=== PATIENT | female | born 1990 | race African-American/Black ===

== ENCOUNTER 2017-03-20 20:41 | Emergency (ER) | payer OTHER ==
--- NOTE | ~2017-03-20 | EKG ---
PATIENT: DARRYL DRISCOLL UNIT #: [id number] Ventricular Rate: 87 BPM Atrial Rate: 87 BPM P-R Interval: 138 ms QRS Duration: 76 ms Q-T Interval: 366 ms QTC Calculation(Bezet): 440 ms P [place]: 80 degrees Calculated R [place]: 79 degrees Calculated T [place]: 63 degrees Diagnosis Line: Normal sinus rhythm Diagnosis Line: Right atrial enlargement Diagnosis Line: Nonspecific ST abnormality Diagnosis Line: Abnormal ECG Diagnosis Line: No previous ECGs available Diagnosis Line: Confirmed by ALIZA RAMOS MD ([id number]) on Diagnosis Line: 03/22/2017 8:19:52 AM INTERPRETING MD: RACHEL PALAFOX
[~2017-03-20 20:41] MED LIST: AMOXICILLIN PO; BENADRYL PO; IBUPROFEN800 MG PO; VICODIN PO; ZITHROMAX1 G/PKT PO
== END 2017-03-20 22:50 | disposition left against medical advice (07) ==
LOC: CED 20:41
DX: Z53.21 Procedure and treatment not carried out due to patient leaving prior to being seen by health care provider (principal)
CPT/HCPCS: 93005